=== PATIENT | male | born 1940 | race Caucasian/White ===

== ENCOUNTER 2024-09-21 09:48 | Emergency (ER) | payer MEDICARE, SELFPAY ==
[2024-09-21 09:51] VITALS: BP 172/78; PULSE 94; RESP 16; TEMP 37.6; O2SAT 99; BMI 25.8
--- NOTE | 2024-09-21 10:20 | CRLHL7_ITS ---
For Patients: As a result of the Century Cures Act, medical imaging exams and procedure reports are released immediately into your electronic medical record. You may view this report before your referring provider. If you have questions, please contact your health care provider. INDICATION: Confusion. TECHNIQUE: Chest 1 views. COMPARISON: None. FINDINGS: Cardiovasculature and mediastinum: Moderate cardiomegaly. Unremarkable mediastinum. Lungs and pleural spaces: Pulmonary vascular congestion with moderate edema. No focal pneumonia. Possible right basilar pleural effusion. No pneumothorax. Bones and soft tissues: No significant findings. IMPRESSION: CHF with moderate edema and possible right-sided pleural effusion. Dictated by Jarvis Stanley MD @ 09/21/2024 11:22:20 AM (Electronically Signed)
--- NOTE | 2024-09-21 10:20 | CRLHL7_ITS ---
For Patients: As a result of the Century Cures Act, medical imaging exams and procedure reports are released immediately into your electronic medical record. You may view this report before your referring provider. If you have questions, please contact your health care provider. INDICATION: Confusion. COMPARISON: None. TECHNIQUE: Noncontrast CT head. FINDINGS: Moderate generalized volume loss. No acute intracranial hemorrhage, acute infarct, mass effect, fracture. No midline shift. No abnormal ventricular dilatation. Patchy low-attenuation change within the white matter consistent with chronic deep white matter small ischemic changes. Normal calvarium and skull base. Visualized paranasal sinuses and mastoid air cells are clear. Intracranial carotid artery calcifications. Normal orbits bilaterally. IMPRESSION: 1. No acute intracranial abnormality 2. Moderate generalized cerebral volume loss. Chronic deep white matter small vessel ischemic changes Please note that all CT scans at this facility use dose modulation, iterative reconstruction, and/or weight-based dosing when appropriate to reduce radiation dose to as low as reasonably achievable. Dictated by Mark Lowery MD @ 09/21/2024 11:01:03 AM (Electronically Signed)
--- NOTE | 2024-09-21 10:27 | ED_ITS ---
HPI - General Adult General Chief complaint: Neuro Symptoms/Altered Deficit Stated complaint: Concerns of stroke symptoms, mental fogginess Time Seen by Provider: 09/21/24 10:04 History of Present Illness HPI narrative: Patient is a 84-year-old gentleman with history of end-stage renal disease who has had increased periods of confusion over the last several weeks. This seems to be increasing in frequency and duration. He is speaking nonsense or not all at times. He has no other focal neurologic defects. Patient is status post nephrectomy for renal cell carcinoma. He has also had hemorrhage in the remaining kidney which is not functioning well the patient has been on dialysis for 10 years. Patient is currently being treated for urinary tract infection and received IV antibiotics at his dialysis run yesterday. He is also on oral ciprofloxacin. Patient does make a small amount urine wears a urinary catheter. Other than the confusion and increasing weakness the patient is been in his usual state of health. He is quite weak and frail and is DNR DNI and does not want to be hospitalized under any circumstance. Related Data Home Medications ?Medication ?Instructions ?Recorded ?Confirmed amlodipine 10 mg tablet 10 mg PO DAILY 09/21/24 09/21/24 calcium acetate(phosphat bind) 667 3,335 mg PO 3XD 09/21/24 09/21/24 mg capsule carvedilol 12.5 mg tablet 12.5 mg PO BID 09/21/24 09/21/24 carvedilol 6.25 mg tablet 6.25 mg PO BID 09/21/24 09/21/24 ciprofloxacin HCl 500 mg tablet 500 mg PO BID 09/21/24 09/21/24 diltiazem HCl 120 mg 120 mg PO DAILY 09/21/24 09/21/24 capsule,extended release 24 hr gentamicin 0.1 % topical cream applic topical DAILY 09/21/24 ketorolac 0.5 % eye drops 1 drp ophthalmic (eye-left) QID 09/21/24 09/21/24 lactulose 10 gram/15 mL oral PO 09/21/24 solution (Enulose) topiramate 100 mg tablet 100 mg PO BID 09/21/24 09/21/24 torsemide 100 mg tablet mg PO 09/21/24 Allergies Allergy/AdvReac Type Severity Reaction Status Date / Time No Known Drug Allergies Allergy Verified 09/21/24 10:03 Review of Systems Status of ROS: Reports: 10 or more systems reviewed and unremarkable except as noted in History and below [facility] Medical History End stage renal disease ?N18.6 - End stage renal disease (ICD-10) Exam Narrative: Exam Narrative: EXAM GENERAL: Patient appears extremely weak and frail. and well. EYES: No scleral icterus. LYMPH: No supraclavicular or cervical lymphadenopathy. SKIN: Visible skin seen during exam normal or with benign process only. EXT: No dependent lower extremity pedal edema. HEART: Regular rate and rhythm with no murmurs, rubs, or gallops. LUNGS: Clear to auscultation bilaterally with no crackles or wheezes. ABD: Soft, non tender, non distended. PSYCH: Good eye contact, speech is not pressured. Neurologic cranial nerves 2-12 grossly intact although the patient seems mentally slow. Const: Vital Signs, click to edit/add: Vital Signs - 24 hr 09/21/24 09:51 Temperature 99.7 F H Pulse Rate [Pulse Oximeter] 94 Respiratory Rate 16 Blood Pressure [Ri ght Upper Arm] 172/78 H Pulse Oximetry 99 Oxygen Delivery Me thod Room Air Course Course ED Course: Patient seen and examined. CT of the head EKG basic metabolic panel CBC UA pe nding. Vital Signs Vital signs: Initial Vital Signs Temperature 99.7 F H 09/21/24 09:51 Temperature Source Temporal Artery Scan 09/21/24 09:51 Pulse Rate 94 09/21/24 09:51 Respiratory Rate 16 09/21/24 09:51 Blood Pressure 172/78 H 09/21/24 09:51 Blood Pressure Mean 109 H 09/21/24 09:51 Blood Pressure Position Sitting 09/21/24 09:51 Pulse Oximetry 99 09/21/24 09:51 Oxygen Delivery Method Room Air 09/21/24 09:51 Vital Signs Temperature 99.7 F H 09/21/24 09:51 Pulse Rate 94 09/21/24 09:51 Respiratory Rate 16 09/21/24 09:51 Blood Pressure 172/78 H 09/21/24 09:51 Pulse Oximetry 99 09/21/24 09:51 Oxygen Delivery Method Room Air 09/21/24 09:51 Temperature 99.7 F H 09/21/24 09:51 Pulse Rate 94 09/21/24 09:51 Respiratory Rate 16 09/21/24 09:51 Blood Pressure 172/78 H 09/21/24 09:51 Pulse Oximetry 99 09/21/24 09:51 Oxygen Delivery Method Room Air 09/21/24 09:51 Medical Decision Making MDM Narrative Medical decision making narrative: Patient is a 4-year-old gentleman with end-stage renal disease who comes in with intermittent episodes of responsiveness. He has had the is escalating over the last several weeks. He does dialyze 3 times a week and yesterday due to concerns of a UTI he was given gentamicin IV after his dialysis run. It is difficult to get a clean sample of his urine. Patient had a negative CT of his head his hemoglobin is 8 his electrolytes are reasonable given his dialysis status. I did talk to his world renowned chef and restaurant owner and together we are recommending he received 2 g of vancomycin and be discharged home. Patient is very clear that he is DNR DNI and does not want to stay in the hospital. I think this is reasonable given his status. They will follow-up with her world renowned chef and restaurant owner at there dialysis run on Monday 2 days from now. Lab Data Labs: Lab Results 09/21/24 09/21/24 Range/Units 10:50 10:56 WBC 10.53 (4.50-11.00) K/uL RBC 2.61 L (4.30-5.90) m/uL Hgb 8.0 L (13.5-17.5) gm/dL Hct 25.4 L (37.0-53.0) % MCV 97 (80-100) fL MCH 31 (26-34) pg MCHC 32 (32-36) gm/dL RDW Coeff of Tee 16.7 H (11.5-15.5) % Plt Count 317 (140-440) K/uL Neut % (Auto) 80.5 H (42.0-72.0) % Lymph % (Auto) 6.8 L (20-44) % [place] % (Auto) 11.3 H (0.0-11.0) % Eos % (Auto) 0.8 (0.0-7.0) % Baso % (Auto) 0.3 (0.0-3.0) % Neut # (Auto) 8.50 H (1.7-7.0) K/uL Lymph # (Auto) 0.70 L (0.90-2.90) K/uL [place] # (Auto) 1.20 H (0.00-0.90) K/UL Eos # (Auto) 0.08 (0.00-0.50) K/uL Baso # (Auto) 0.03 (0.00-0.30) K/uL Abs Immat Gran (auto) 0.03 (0.00-0.30) K/uL Imm/Tot Granulo (auto) 0.3 % Sodium 135 (135-149) mmol/L Potassium 3.9 (3.6-5.1) mmol/L Chloride 95 L (96-114) mmol/L Carbon Dioxide 32 (20-32) mmol/L Anion Gap 8 (7-15) mEq/L BUN 25 (7-30) mg/dL Creatinine 4.9 H (0.5-1.5) mg/dL Estimated Creat Clear 12.38 Estimated GFR 11 ml/min Glucose 113 (60-115) mg/dL Calcium 8.9 (8.4-10.6) mg/dL Urine Color Light yellow (Yellow) Urine Appearance Slightly Cloudy A (Clear) Urine pH 8.5 (5.0-8.5) Ur Specific [place] 1.020 (1.000-1.030) Urine Protein 3+ A (Negative) Urine Glucose (UA) 1+ A (Negative) Urine Ketones Negative (Negative) Urine Blood 3+ A (Negative) Urine Nitrite Negative (Negative) Urine Bilirubin Negative (Negative) Urine Urobilinogen 0.2 (0.2-1.0) Ur Leukocyte Esterase 3+ A (Negative) Urine RBC 25-50 A (0-2) Urine WBC 50-100 A (0-5) Ur Squamous Epith Cells Few (None-Few) Urine Bacteria Moderate A (None) Discharge Plan Discharge Clinical Impression: End stage renal disease Additional Instructions: Discontinue Cipro Continue current medications Monitor symptoms Continue dialysis on Monday Activity Level: No Restrictions Discharge Diet: Regular Prescriptions: No Action carvedilol 6.25 mg tablet 6.25 mg PO BID carvedilol 12.5 mg tablet 12.5 mg PO BID ciprofloxacin HCl 500 mg tablet 500 mg PO BID ketorolac 0.5 % drops 1 drp ophthalmic (eye-left) QID torsemide 100 mg tablet PO amlodipine 10 mg tablet 10 mg PO DAILY gentamicin 0.1 % cream topical DAILY diltiazem HCl 120 mg capsule,extended release 24hr 120 mg PO DAILY topiramate 100 mg tablet 100 mg PO BID calcium acetate(phosphat bind) 667 mg capsule 3,335 mg PO 3XD lactulose [Enulose] 10 gram/15 mL solution PO Follow Up/Referrals: Kelton Salazar JR, DO [Staff Physician] -
--- OUTSIDE RECORDS SUMMARY | 2024-09-21 10:36 | XMS_ITS | Continuity of Care Document ---
Author Organization [facility] Address [address] [place] [address]- Encounter 08/13/24 - 09/02/24 [facility] [address] [place] [address]- Immunizations Given and Recorded Vaccine Date Status Refusal Reason influenza virus vaccine, inactivated 1 08/07/23 Re corded influenza virus vaccine, inactivated 2 08/15/22 Re corded pneumococcal (PCV13) 3 02/12/21 Recorded pneumococcal (PCV13) 4 05/20/20 Recorded pneumococcal (PCV13) 05/08/15 Recorded influenza (LAIV) 5 07/17/20 Recorded influenza (LAIV) 07/25/18 Recorded influenza (LAIV) 09/29/17 Recorded 1Result Comment: [facility] 2Result Comment: Outside Source Comment: Result Comment: per [facility] 3Result Comment[facility] 4Result Comment: [facility] 5Result Comment: [facility] Medications acetaminophen 325 mg oral capsule 650 mg = 2 cap, Oral, As Needed, 0 Refill(s) Start Date: 12/27/23 Status: Ordered amLODIPine 10 mg oral tablet 0 Refill(s) Start Date: 12/28/21 Status: Ordered calcium acetate 667 mg oral capsule 0 Refill(s) Start Date: 12/28/21 Status: Ordered carvedilol 6.25 mg oral tablet 12.5 mg, BID, 0 Refill(s) Start Date: 12/28/21 Status: Ordered DilTIAZem (Eqv-Cardizem CD) 120 mg/24 hours oral capsule, extended release 0 Refill(s) Start Date: 12/28/21 Status: Ordered gabapentin 100 mg oral capsule 200 mg = 2 cap, Oral, BID, 0 Refill(s) Start Date: 08/30/24 Status: Ordered ipratropium 42 mcg/inh (0.06%) nasal spray 15 unknown unit, Administer 2 sprays into each nostril 3 (three) times a day.*, 0 Refill(s) Start Date: 12/27/23 Status: Ordered sevelamer carbonate 800 mg oral tablet 1,600 mg, TID w/ Meals, 0 Refill(s) Start Date: 12/28/21 Status: Ordered torsemide 100 mg oral tablet 135 unknown unit, take 1 tablet by mouth once daily on dialysis days (monday, monday, monday), then 1 tablet twice daily on non-dialysis days (monday, , monday, monday)*, 0 Refill(s) Start Date: 12/27/23 Status: Ordered Veltassa 16.8 g oral powder for reconstitution 16.8 g, Tue/Felicitas/Sat, 30 EA, 0 Refill(s), 0 Refill(s) Start Date: 08/30/24 Status: Ordered Problem List Condition Confirmation Course Effective Dates Status Health Status Informant End stage renal disease Confirmed 06/16/21 Active Essential tremor Confirmed Active Hyperphosphatemia Confirmed Active Hypertension Confirmed Active Secondary hyperparathyroidism Confirmed Active Patient Care team information Care Team Personnel Name: Kelton Salazar Position: External Provider - Heat Treater Member Role: Heat Treater Address: Address: [address] [place] [id number]- Name: ROEL Saucedo Tammy Position: Nurse - [facility] Member Role: [employer] Technician Name: [facility] Madelin Barcenas Position: External Provider - Clinic Member Role: Dialysis Center Address: Address: [address] [place] [id number]- Care Team Related Persons Name: Oneyda KUMAR
[2024-09-21 11:03] LABS: Appearance Urine Slightly Cloudy (Clear); Bilirubin Urine Negative (Negative); Blood Urine 3+ (Negative); Color Urine Light yellow (Yellow); Glucose Urine 1+ (Negative); Ketones Urine Negative (Negative); Leukocyte Esterase Urine 3+ (Negative); Nitrite Urine Negative (Negative); Protein Urine 3+ (Negative); Urobilinogen Urine 0.2 (0.2-1.0); pH Urine 8.5 (5.0-8.5)
[2024-09-21 11:06] LABS: Basophils Absolute Auto 0.03 K/uL (0.00-0.30); Basophils Percent Auto 0.3 % (0.0-3.0); Eosinophils Absolute Auto 0.08 K/uL (0.00-0.50); Eosinophils Percent Auto 0.8 % (0.0-7.0); Hematocrit 25.4 % (37.0-53.0); Immature Granulocytes Abs Auto 0.03 K/uL (0.00-0.30); Immature Granulocytes Pct Auto 0.3 %; Lymphocytes Percent Auto 6.8 % (20-44); Mean Corpuscular HGB Conc 32 gm/dL (32-36); Mean Corpuscular Hemoglobin 31 pg (26-34); Mean Corpuscular Volume 97 fL (80-100); Monocytes Percent Auto 11.3 % (0.0-11.0); Neutrophils Percent Auto 80.5 % (42.0-72.0); Platelet Count* 317 K/uL (140-440); RDW Coefficient of Variation % 16.7 % (11.5-15.5); Red Blood Count 2.61 m/uL (4.30-5.90); White Blood Count* 10.53 K/uL (4.50-11.00)
[2024-09-21 11:12] LABS: Bacteria Urine Moderate; RBC Urine 25-50 (0-2); Squamous Epithelial Cell Urine Few (None-Few); WBC Urine 50-100 (0-5)
[2024-09-21 11:17] LABS: Chloride* 95 mmol/L (96-114); Potassium* 3.9 mmol/L (3.6-5.1); Sodium* 135 mmol/L (135-149)
[2024-09-21 11:20] LABS: Anion Gap 8 mEq/L (7-15); Blood Urea Nitrogen* 25 mg/dL (7-30); Carbon Dioxide* 32 mmol/L (20-32); Creatinine* 4.9 mg/dL (0.5-1.5); Est. Creatinine Clearance* 12.38; Estimated Glomerular Filt Rate 11 ml/min; Glucose* 113 mg/dL (60-115)
[2024-09-21 11:21] LABS: Calcium* 8.9 mg/dL (8.4-10.6)
[2024-09-21 11:37] LABS: Slide Review Reflex No
[2024-09-21] MEDS: OXYCODONE 1 MG/ML ORAL SOLN 5 MG PO (13:16)
== END 2024-09-21 14:53 | disposition home or self-care (01) ==
LOC: ED 10:34
PROVIDERS: Emergency Provider Internal Medicine; PCP Internal Medicine
DX: N18.6 End stage renal disease (principal)
CPT/HCPCS: 36415; 70450; 71045; 80048; 81001; 81003; 85025; 87086; 93005; 96365; 99284; 99285; A9270; J3370; J7030